=== PATIENT | female | born 1995 | race American Indian/Alaskan Native ===

== ENCOUNTER 2017-07-28 11:35 | Emergency (ER) | payer MEDICAID ==
[2017-07-28 12:41] VITALS: BP 114/71
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
== END 2017-07-28 18:56 | disposition home or self-care (01) ==
LOC: ED 11:35
DX: S56.912A Strain of unspecified muscles, fascia and tendons at forearm level, left arm, initial encounter (principal); S76.012A Strain of muscle, fascia and tendon of left hip, initial encounter; D57.3 Sickle-cell trait; V49.49XA Driver injured in collision with other motor vehicles in traffic accident, initial encounter; Y93.89 Activity, other specified; Y99.8 Other external cause status; Y92.488 Other paved roadways as the place of occurrence of the external cause
CPT/HCPCS: 99283